=== PATIENT | female | born 1950 | race Caucasian/White ===

== ENCOUNTER 2019-01-14 21:27 | Emergency (ER) | payer MEDICARE, BC ==
[2019-01-14] MEDS ORDERED: FENTANYL PF 100MCG/2ML VIAL IVP ONE (21:41)
[2019-01-14] MEDS ORDERED: ONDANSETRON HCL IV 4 MG/2 ML VIAL IVP ONE (21:41)
--- NOTE | 2019-01-14 21:42 | Emergency Department Record ---
History of Present Illness - General Chief Complaint: Fall Injury Stated Complaint: BLEEDING Time Seen by Provider: 01/14/19 21:36 Source: Patient, EMS Limitations: No limitations - History of Present Illness Initial Comments: 68 female presents to ED following a fall at home. Patient reports that she missed a step resulting in trip and fall. Patient does report that she takes Plavix at her baseline, was dialyzed earlier today. Patient reports pain and swelling to the left knee following her fall, unable to bear weight on the lower extremity. Patient denies numbness, tingling, or weakness distally on examination. MD Complaint: Fall Onset/Timin -: Minutes(s) Fall From: Standing When Fall Occurred: 1 hour [employer] Fall Witnessed: Yes, by family Place Fall Occurred: Home Loss of Consciousness: None Prolonged Down Time?: No Symptoms Prior to Fall: None Location: Head, Face Location - Extremities: Left: Knee Severity: Moderate Quality: Aching - [place] Coma Scale Eye Response: (4) Open spontaneously Motor Response: (6) Obeys commands Verbal Response: (5) Oriented [place] Total: 15 - Related Data Home Medications Medication Instructions Recorded Confirmed Last Taken Aspirin [Aspir-Low] 81 mg PO DAILY 01/14/19 01/14/19 01/14/19 Calcitriol 0.5 mcg PO DAILY 01/14/19 01/14/19 01/14/19 Clopidogrel Bisulfate [Plavix] 75 mg PO DAILY 01/14/19 01/14/19 01/14/19 Folic AC/Vit Bcomp,C/Zn/Vit D3 1 each PO DAILY 01/14/19 01/14/19 01/14/19 [Dialyvite 800-Ultra D Tablet] Furosemide [Lasix] 40 mg PO DAILY 01/14/19 01/14/19 01/14/19 Oxycodone HCl/Acetaminophen 1 each PO Q8H PRN 01/14/19 01/14/19 01/14/19 [Percocet 2.5mg/325mg] Pregabalin (Lyrica) 100Mg Cap 100 mg PO BID 01/14/19 01/14/19 01/14/19 [Lyrica] Topiramate [Topamax] 25 mg PO BID 01/14/19 01/14/19 01/14/19 Previous Rx's Medication Instructions Recorded Hydrocodone/Acetaminophen [Aurelia 1 each PO Q6H PRN #10 tablet 01/15/19 5-325 Tablet] Allergies Allergy/AdvReac Type Severity Reaction Status Date / Time codeine Allergy Unknown NAUSEA AND Verified 01/14/19 21:59 VOMITING hydrocodone Allergy Unknown NAUSEA AND Verified 01/14/19 21:59 VOMITING Opioids - Morphine Analogues Allergy Unknown NAUSEA AND Verified 01/14/19 21:59 VOMITING Opioids-Meperidine and Allergy Unknown NAUSEA AND Verified 01/14/19 21:59 Related VOMITING propoxyphene Allergy Unknown NAUSEA AND Verified 01/14/19 21:59 VOMITING tramadol Allergy Unknown NAUSEA AND Verified 01/14/19 21:59 VOMITING fentanyl AdvReac RASH Verified 01/14/19 21:46 Review of Systems Constitutional: Denies: Chills, Fever, Malaise, Night sweats Eyes: Denies: Eye discharge, Eye pain ENT: Denies: Congestion, Ear pain, Epistaxis Respiratory: Denies: Cough, Dyspnea Cardiovascular: Denies: Chest pain, Dyspnea on exertion Endocrine: Denies: Fatigue, Heat or cold intolerance Gastrointestinal: Denies: Abdominal pain, Nausea, Vomiting Genitourinary: Denies: Incontinence, Retention Musculoskeletal: Reports: Arthralgia. Denies: Back pain, Gout, Joint swelling Skin: Denies: Bruising, Change in color Neurological: Reports: Headache. Denies: Abnormal gait, Confusion, Seizure Psychiatric: Denies: Anxiety Hematological/Lymphatic: Reports: Easy bleeding, Easy bruising. Denies: Anemia , Blood Clots Physical Exam - General General Appearance: Alert, Oriented x3, Cooperative, Moderate distress Limitations: No limitations - Head Head exam detail: General tenderness (TTP over the nasdal bridge). negative: Abrasion, Contusion, Tello's sign, Hematoma, Laceration - Eye Eye exam: Normal appearance. negative: Conjunctival injection, Periorbital swelling, Periorbital tenderness, Scleral icterus - ENT Ear exam: negative: Auricular hematoma, Auricular trauma Nasal Exam: negative: Active bleeding, Discharge, Dried blood, Foreign body Mouth exam: negative: Drooling, Laceration, Muffled voice, Tongue elevation - Neck Neck exam: Normal inspection. negative: Meningismus, Tenderness - Respiratory Respiratory exam: Normal lung sounds bilaterally. negative: Rales, Respiratory distress, Rhonchi, Stridor - Cardiovascular Cardiovascular Exam: Regular rate, Normal rhythm, Normal heart sounds - GI/Abdominal GI/Abdominal exam: Soft, Tenderness (TTP right mid-abdomen, patient reports symptoms are chronic and not new.). negative: Rebound, Rigid - Rectal Rectal exam: Deferred - exam: Deferred - Extremities Extremities exam: Joint swelling, Tenderness, Other (STS c/w hemarthrosis left knee, strong DPP, compartments of the lower leg are soft on examination. No pain with palpation to the distal thigh, proximla lower extremity.). negative: Calf tenderness, Pedal edema - Back Back exam: Denies: CVA tenderness (R), CVA tenderness (L) - Neurological Neurological exam: Alert, Oriented X3. negative: Motor sensory deficit - Psychiatric Psychiatric exam: Normal affect, Normal mood - Skin Skin exam: Normal color. negative: Abrasion Type of lesion: negative: abrasion Course - Reevaluation(s) Reevaluation #1: 01/14/19 22:22 Laboratory studies were reviewed: Hgb: 11.5 Potassium: 4.8 BUN: 32 Creatinine: 3.7 GFR 13 Reevaluation #2: 01/14/19 23:04 Left Knee: Possible non-displaced patella fracture Large joint effusion CT Brain: Generalized atrophy No definite acute fracture or mass effect evident CT Cervical Spine: No fracture or pre-vertebral STS Thyroid nodules present Reevaluation #3: 01/15/19 00:34 CT Lower extremity: Comminuted, non-displaced patella fracture Moderate joint effusion Patient was reassessed, distal DPP is strong and present on re-examination. No evidence for tibial plateau fracture on examination. No cliniacl evidence for femoral/tibila dislocation and reduction on examination. Will place in knee immobilizer will be fitted, patient has a walker at home as well to assist with mobility. Will have the patient follow-up with Dr. Wakefield next week for further orthopedic evaluation. Patient was given a prescription for narcotic pain medication as part of the treatment for their acute presentation in the emergency department. Patient was specifically counseled regarding the following: -Risk of overdose -Risk of addiction -Risk of mixing prescribed medication with other home medications ( benzodiazipines, muscle relaxers, alcohol) -Risk of narcotic medication while -Safe disposal of narcotic pain medications -Risk of felony for delivering, sharing, or distributing controlled substances I reviewed the Opiate start talking document with the patient. Patient verbalizes understanding of all risks as described above and all questions were answered. The form was signed following our discussion. Patient appears stable for discharge at this time. Medical Decision Making - Lab Data Result diagrams: 01/14/19 22:00 01/14/19 22:00 Disposition Disposition: Discharge Clinical Impression: Fall (on) (from) other stairs and steps, initial encounter Patella fracture Qualifiers: Encounter type: initial encounter Fracture type: closed Fracture morphology: comminuted Fracture alignment: nondisplaced Laterality: left Qualified Code(s): S82.045A - Nondisplaced comminuted fracture of left patella, initial encounter for closed fracture Contusion of head Qualifiers: Encounter type: initial encounter Contusion of head detail: unspecified part of head Qualified Code(s): S00.93XA - Contusion of unspecified part of head, initial encounter Disposition: Home, Self-Care Condition: (2) Stable Instructions: Patellar Fracture (ED) Additional Instructions: Return to ED if your symptoms worsen or if you have any concerns. Favian as directed. Follow-up with Dr. Wakefield in 3-5 days as directed. Prescriptions: Hydrocodone/Acetaminophen [Aurelia 5-325 Tablet] 1 each PO Q6H PRN #10 tablet PRN Reason: Pain - Mod To Severe (5-10) Referrals: EVON WAKEFIELD [DOCTOR OF OSTEOPATH] - [facility] [Provider Group] Forms: Patient Portal Access Time of Disposition: 00:40 Quality - Quality Measures Quality Measures: N/A, Blunt Head Trauma (>2yr) - [place] Coma Scale [place] Coma Scale: [place] Coma Scale Eye Response: (4) Open spontaneously Motor Response: (6) Obeys commands Verbal Response: (5) Oriented [place] Total: 15 - Blunt Head Trauma - Adult Quality Measure: Measure #415: Utilization of CT for Minor Blunt Head Trauma ICD10 Codes Entered: Yes Was CT ordered: Yes Does Patient Have Any of the Following: No Exclusions Patient Presented Within 24 Hours of Injury: Yes Azucena Score: [address] for Minor Blunt Head Trauma: < CT Done, Appropriate Indication > [G9529] Additional Inclusion Criteria: Within 24hrs (AND) GCS of 15 (AND) CT ordered. [ G9530] Indications For CT: Taking Anticoagulant Medication - Blood Pressure Screening Does Patient Have Any of the Following: Active Dx of HTN Blood Pressure Classification: Pre-Hypertensive BP Reading Systolic Measurement: 122 Diastolic Measurement: 61 Screening for High Blood Pressure: Patient Exclusion, Hx of HTN [G9744]
[2019-01-14 22:04] LABS: BASO % 0.3 % (0-6); EOS % 2.3 % (0-6); GRAN % 63.5 % (47-80); HEMATOCRIT 36.4 % (35.0-47.0); HEMOGLOBIN 11.5 gm/dl (11.6-16.0); LYMPH % 25.2 % (16-45); MEAN CELL VOLUME 96.8 fl (81-97); MEAN CORPUSCULAR HGB CONC 31.6 g/dl (32-36); MEAN PLATELET VOLUME 10.8 fl (7.4-10.4); MONO % 8.7 % (0-9); PLATELET COUNT 187 K/uL (130-400); RED BLOOD COUNT 3.76 M/uL (3.80-5.40); RED CELL DISTRIBUTION WIDTH 14.9 % (11.5-14.5); WHITE BLOOD COUNT W/O DIFF 6.1 K/uL (4.2-12.2)
[2019-01-14 22:05] LABS: MEAN CORPUSCULAR HEMOGLOBIN 30.5 pg (27-33)
[2019-01-14 22:14] LABS: PROTHROMBIN TIME (PATIENT) 10.4 SECONDS (9.5-12.1)
[2019-01-14 22:16] LABS: CREATININE 3.7 mg/dL (0.5-0.9)
[2019-01-14 22:17] LABS: BILIRUBIN,TOTAL 0.4 mg/dL (0.2-1.0); TOTAL PROTEIN 7.3 g/dL (6.6-8.7)
[2019-01-14 22:22] LABS: ALB/GLOB RATIO 1.6 (1.1-1.8); ALBUMIN 4.5 g/dL (4.0-5.0)
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
--- NOTE | 2019-01-16 21:21 | RADIOLOGY REPORT ---
EXAM: KNEE, LEFT 4 VIEWS HISTORY: PATIENT FELL TODAY WITH SWOLLEN AND BRUISED LEFT KNEE. TECHNIQUE: Four views left knee. COMPARISON: No prior left knee series. ENCOUNTER: Initial. FINDINGS: There appears to be a joint effusion on the lateral view in the suprapatellar bursa. Bones diffusely appear somewhat osteopenic suggesting osteoporosis. On the patellar sunrise view in particular, there is likely an undisplaced fracture along the lateral aspect of the patella. This is somewhat difficult to see on the other views, although there is a suggestion of a patellar fracture line on some of the other views as well. Mild degenerative arthritis left knee also present. Patellar spurring along the superior margin of the patella anteriorly. If the patient clinically does not have point tenderness to support a lateral patellar fracture, this could be confirmed with a CT of the left knee, if clinically warranted. IMPRESSION: 1. JOINT EFFUSION. 2. APPEARANCE LIKELY REPRESENTING AN ESSENTIALLY UNDISPLACED FRACTURE OF THE PATELLA LATERALLY, BEST SEEN ON THE PATELLAR SUNRISE VIEW. 3. MILD DEGENERATIVE ARTHRITIS LEFT KNEE. 4. OSTEOPOROSIS. JOB NUMBER: [id number] [facility]
--- NOTE | 2019-01-17 05:07 | CT SCAN REPORT ---
DATE: 01/15/2019. EXAM: CT OF THE LEFT KNEE. HISTORY: Left knee fracture. TECHNIQUE: CT of the left knee is performed without intravenous contrast. COMPARISON: Left knee x-rays dated 01/14/2019. FINDINGS: There is a comminuted, nondisplaced fracture involving the lateral aspect of the patella. No other fracture seen. There is a moderate-sized joint effusion. There is narrowing of the medial joint space compartment, and there are marginal osteophytes. There is prepatellar soft tissue swelling. No lytic or blastic bone lesion identified. There is a small popliteal cyst present. There is a 1.0 cm soft tissue density nodule within the fatty-infiltrated medial head of the gastrocnemius muscle, image 81 of 91. Otherwise unremarkable. IMPRESSION: 1. NONDISPLACED, COMMINUTED FRACTURE OF THE LATERAL ASPECT OF THE PATELLA. 2. MODERATE JOINT EFFUSION. 3. ARTHRITIC CHANGES, MOST PROMINENT IN THE MEDIAL JOINT SPACE COMPARTMENT. 4. A 1.1 CM SOFT TISSUE DENSITY NODULE IN THE MEDIAL HEAD OF THE GASTROCNEMIUS MUSCLE OF UNCERTAIN ETIOLOGY. THIS MAY BE CHRONIC. 5. SMALL POPLITEAL CYST. JOB NUMBER: [id number] [facility]
== END 2019-01-15 01:24 | disposition home or self-care (01) ==
LOC: ER 21:27
DX: S82.045A Nondisplaced comminuted fracture of left patella, initial encounter for closed fracture (principal); S00.93XA Contusion of unspecified part of head, initial encounter; W10.9XXA Fall (on) (from) unspecified stairs and steps, initial encounter; Y92.009 Unspecified place in unspecified non-institutional (private) residence as the place of occurrence of the external cause; Z79.01 Long term (current) use of anticoagulants; E11.9 Type 2 diabetes mellitus without complications
CPT/HCPCS: 29505; 99284 ×2; 96374; 96375; 85025; 85610; 80053; 73564; 72125; 70450; 73700; J2405; J3010